=== PATIENT | male | born 1965 | race Two or more races ===

== ENCOUNTER → 2023-09-09 06:29 | Day surgery (SDC) | payer OTHER, SELFPAY ==
[2023-09-09 07:47] LABS: Glucose - Point of Care 100 mg/dl (70-99)
== END ==
LOC: GI 06:29
PROVIDERS: ATTENDING PHYSICIAN Specialist
DX: Z87.19 Personal history of other diseases of the digestive system (principal); K21.00 Gastro-esophageal reflux disease with esophagitis, without bleeding
CPT/HCPCS: 43239; 88305; 82962